=== PATIENT | female | born 1965 | race Caucasian/White ===

== ENCOUNTER 2023-12-19 05:37 | Observation (INO) ==
[~2023-12-19 05:37] MED LIST: Metoclopramide 5 MG/ML VIAL (10 mg) IV PRN; NS 0.45% 1000 ml BAG 1,000 ML IV SCH; Naloxone 0.4 mg VIAL 0.4 mg/ml 1 ml VIAL IV PRN; Ondansetron 4 mg VIAL 2 MG/ML 2 ml VIAL IV PRN
[2023-12-19] MEDS: Buffered Lidocaine 1% SYRIN 1 ml INTRADERM ONE (05:59)
[2023-12-19] MEDS: Acetaminophen IV 1 GM/100ML 1,000 MG/100 ML BAG IV ONE (05:59)
[2023-12-19] MEDS ORDERED: Tranexamic Acid 1 GM/100ML BAG 2,000 MG/200 ML BAG IV ONE (06:03)
[2023-12-19] MEDS ORDERED: ceFAZolin 2 GM PREMIX 2 GM/50 ML BAG ONE (06:03)
[2023-12-19] MEDS ORDERED: Scopolamine 1 mg/72hr PATCH ONE (06:03)
[2023-12-19] MEDS: Lactated Ringers 1000 ml BAG 1,000 ML IV SCH ×2 (06:18→13:58)
[2023-12-19] MEDS: Scopolamine 1 mg/72hr PATCH TRANSDERM ONE (06:18)
[2023-12-19 06:20] LABS: Rapid COVID-19 Molecular Undetected (Undetected)
[2023-12-19] MEDS ORDERED: ROPIVACAINE 5 MG/ML 30 ML BTL (0.5%) ONE (06:47)
[2023-12-19] MEDS ORDERED: Sevoflurane BOTTLE ONE (06:57)
[2023-12-19] MEDS ORDERED: KETAMINE HCL 10 MG/ML 20 ml VIAL (200 MG) ONE ×2 (07:05→08:45)
[2023-12-19] MEDS ORDERED: Phenylephrine IV 10 MG/ML 1 ml VIAL ONE (07:06)
[2023-12-19] MEDS ORDERED: Ondansetron 4 mg VIAL 2 MG/ML 2 ml VIAL ONE (07:08)
[2023-12-19] MEDS ORDERED: Metoclopramide 5 MG/ML VIAL (10 mg) ONE (07:08)
[2023-12-19] MEDS ORDERED: Midazolam 5 mg/5 ml VIAL 1 mg/ml 5 ml VIAL (5 mg) ONE (07:08)
[2023-12-19] MEDS ORDERED: fentaNYL 250 mcg/5 ml 50 MCG/ML 5 ml VIAL (250 MCG) ONE (07:32)
[2023-12-19] MEDS ORDERED: Rocuronium 50 mg VIAL 10 mg/ml 5 ml VIAL (50 mg) ONE (07:33)
[2023-12-19] MEDS ORDERED: Dexamethasone IV 4 MG/ML VIAL 1 ml VIAL ONE (08:12)
[2023-12-19] MEDS ORDERED: Midazolam 2 mg/2 ml VIAL 1 mg/ml 2 ml VIAL (2 mg) ONE (08:45)
[2023-12-19] MEDS ORDERED: Lactulose 30 ml UDC PO PRN (10:27)
[2023-12-19] MEDS ORDERED: Morphine 2 MG/ML SYRINGE IV PRN (10:27)
[2023-12-19] MEDS ORDERED: Ondansetron 4 mg VIAL 2 MG/ML 2 ml VIAL IV PRN (10:27)
[2023-12-19] MEDS ORDERED: Calcium Carb (TUMS) 500 mg CHEW TAB PO PRN (10:27)
[2023-12-19] MEDS ORDERED: Ondansetron ODT 4 mg TAB 4 MG TAB PO PRN (10:27)
[2023-12-19] MEDS ORDERED: Magnesium Hydroxide LIQ 30 ML UDC PO PRN (10:27)
[2023-12-19] MEDS: fentaNYL 100 mcg/2 ml 50 MCG/ML VIAL IV PRN (11:02)
[2023-12-19] MEDS ORDERED: fentaNYL 100 mcg/2 ml 50 MCG/ML VIAL ONE (11:02)
[2023-12-19] MEDS: Clindamycin 600 MG/D5W BAG 600 MG/50 ML BAG IV SCH (14:59)
[2023-12-19] MEDS: ceFAZolin 2 GM PREMIX 2 GM/50 ML BAG IV SCH (15:09)
[2023-12-19 15:50] VITALS: BP 109/71
[2023-12-19] MEDS ORDERED: Magnesium Hydroxide LIQ 30 ML UDC PO SCH (21:00)
[2023-12-20] MEDS ORDERED: Vitamin THERAPEUTIC TAB PO SCH (09:00)
== END 2023-12-19 17:19 | disposition home or self-care (01) ==
LOC: SSU 05:37 → OR 05:37 → EDSTATUS 09:45
PROVIDERS: ADMIT Orthopaedic Surgery Adult Reconstructive Orthopaedic Surgery; ATTEND Orthopaedic Surgery Adult Reconstructive Orthopaedic Surgery